=== PATIENT | male | born 1940 | race Caucasian/White ===

== ENCOUNTER 2021-01-16 11:43 | Day surgery (SDC) | payer MEDICARE, OTHER ==
[2021-01-12 07:43] LABS: BASOPHILS % (AUTO) 0.6 % (0-1); EOSINOPHILS # (AUTO) 0.2 X10'3 (0-0.9); EOSINOPHILS % (AUTO) 3.2 % (0-6); HEMATOCRIT 43.6 % (42.0-52.0); HEMOGLOBIN 14.5 g/dl (14.0-17.9); LYMPHOCYTES # (AUTO) 1.7 X10'3 (1.1-4.8); LYMPHOCYTES % (AUTO) 29.3 % (21-51); MEAN CORPUSCULAR HEMOGLOBIN 32.1 PG (27.0-31.0); MEAN CORPUSCULAR HGB CONC 33.3 g/dL (33.0-36.5); MEAN CORPUSCULAR VOLUME 96.2 FL (78-98); MEAN PLATELET VOLUME 7.7 FL (7.4-10.4); MONOCYTES # (AUTO) 0.6 X10'3 (0-0.9); MONOCYTES % (AUTO) 10.6 % (2-12); NEUTROPHILS # (AUTO) 3.2 X10'3 (1.8-7.7); NEUTROPHILS % (AUTO) 56.3 % (42-75); PLATELET COUNT 245 X10'3 (140-440); RED BLOOD COUNT 4.53 X10'6 (4.70-6.10); RED CELL DISTRIBUTION WIDTH 13.8 % (11.5-14.5); WHITE BLOOD COUNT 5.6 X10'3 (4.5-11.0)
[2021-01-12 07:53] LABS: ALBUMIN 3.4 G/DL (3.4-5.0); ANION GAP 11 (8-16); BLOOD UREA NITROGEN 17 MG/DL (7-18); BUN/CREATININE RATIO 21.3 (5.4-32.0); CALCIUM 8.7 MG/DL (8.5-10.1); CHLORIDE 104 MMOL/L (99-107); GLUCOSE 104 MG/DL (70-104); PARTIAL THROMBOPLASTIN TIME 26 SECONDS (22-32); POTASSIUM 3.7 MMOL/L (3.5-5.1); SODIUM 143 MMOL/L (135-145); TOTAL CARBON DIOXIDE 27.9 MMOL/L (24-32); eGFR > 90 ML/MIN
[2021-01-16] VITALS (9 sets, daily range): BP systolic 106–143; BP diastolic 63–87
[~2021-01-16] VITALS: Ht 170.2 cm; Wt 83.5 kg
[2021-01-16] MEDS ORDERED: diphenhydrAMINE 25mg capsule PO PRN (12:10)
[2021-01-16] MEDS ORDERED: normal saline 1,000 ML IV SCH (12:10)
[2021-01-16] MEDS ORDERED: LORazepam 0.5 MG tablet PO PRN (12:10)
[2021-01-16] MEDS ORDERED: heparin 1,000unit/ml 10ml vial 10 ML ONE ×2 (12:21→14:22)
[2021-01-16] MEDS ORDERED: verapamil 2.5 mg/ml inj IV ONE (12:21)
[2021-01-16] MEDS ORDERED: nitroGLYCERIN-Tridil 50MG/D5W 250 ML IV ONE (12:21)
[2021-01-16] MEDS ORDERED: iohexol 350MG/ML 100ml bottle IV ONE ×2 (12:21→14:20)
[2021-01-16] MEDS ORDERED: LIDOcaine 1% (10mg/ml)w/preservative injection 20ml MDV ONE (12:21)
[2021-01-16] MEDS ORDERED: midazolam 1 mg/ML 2ml injection ONE (12:27)
[2021-01-16] MEDS ORDERED: fentaNYL/PF 50MCG/1 ML 2ML syringe ONE (12:27)
[2021-01-16] MEDS ORDERED: MULT-1085 PO (14:20)
[2021-01-16] MEDS ORDERED: MV-M1CAP18 PO (14:20)
[2021-01-16] MEDS ORDERED: ESOM20CA PO (14:20)
[2021-01-16] MEDS ORDERED: ASPI-611 PO (14:20)
[2021-01-16] MEDS ORDERED: EZET10TA6 PO (14:20)
[2021-01-16] MEDS ORDERED: TRIA1CAP6 PO (14:20)
[2021-01-16] MEDS ORDERED: UBID10CA4 PO (14:20)
[2021-01-16] MEDS ORDERED: ATOR40TA71 PO (14:20)
[2021-01-16] MEDS ORDERED: clopidogrel 300mg tablet ONE (14:47)
[2021-01-16] MEDS ORDERED: ondansetron/PF 4mg/2ml inj IV PRN (15:25)
[2021-01-16] MEDS ORDERED: HYDROcodone/acetaminophen 10/325mg tab PO PRN (15:25)
[2021-01-16] MEDS ORDERED: HYDROcodone/acetaminophen 5mg/325mg tablet PO PRN (15:25)
[2021-01-16] MEDS ORDERED: normal saline 1000ml 1,000 ML IV SCH (15:25)
[2021-01-16] MEDS ORDERED: proCHLORperazine 10 MG/2 ml inj IV PRN (15:25)
[2021-01-16] MEDS ORDERED: OXAZEpam 15mg capsule PO PRN (15:25)
== END 2021-01-16 18:00 | disposition home or self-care (01) ==
LOC: SSTAY O 11:43
PROVIDERS: ATTEND Internal Medicine Interventional Cardiology
DX: R94.39 Abnormal result of other cardiovascular function study (principal); I25.10 Atherosclerotic heart disease of native coronary artery without angina pectoris; I10 Essential (primary) hypertension; I45.10 Unspecified right bundle-branch block; I08.1 Rheumatic disorders of both mitral and tricuspid valves; E78.5 Hyperlipidemia, unspecified; E66.9 Obesity, unspecified; Z68.28 Body mass index [BMI] 28.0-28.9, adult; Z79.82 Long term (current) use of aspirin; Z79.899 Other long term (current) drug therapy; Z79.01 Long term (current) use of anticoagulants; Z85.46 Personal history of malignant neoplasm of prostate
CPT/HCPCS: 36415; 80048; 85025; 85610; 85730; 93005; 93458; 99152; 99153; C1725; C1751; C1760; C1769; C1876; C1894; C9600; J1644; J2001; J2250; J3010; Q9967; A4620; A6258; J3490